=== PATIENT | male | born 1960 | race Caucasian/White ===

== ENCOUNTER 2017-01-11 11:38 | Emergency (ER) | payer SELFPAY ==
[~2017-01-11] VITALS: Ht 180.3 cm; Wt 90.0 kg
[2017-01-11 11:40] VITALS: BP 143/88; PULSE 103; RESP 15; TEMP 98.5; O2SAT 98
--- NOTE | 2017-01-11 11:45 | PD ---
Physical Exam Time Seen by Provider: 11:44 Narrative 56 Y/O male here with R groin pain, burning sensation, "bulging," nausea. Symptoms ongoing for 8 months, worsening over past month which prompted evaluation. Vital signs reviewed. Seen at triage desk. Awaiting bed placement. Data Data Last Documented VS Vital Signs Date Time Temp Pulse Resp B/P Pulse Ox O2 Delivery O2 Flow Rate FiO2 01/11/17 11:40 98.5 103 15 143/88 98 MDM Medical Record Reviewed: Yes Supervised Visit with LEMUEL: Dinh Hernandez Jan 11, 2017 11:45
[2017-01-11 12:17] VITALS: BP 131/72
--- NOTE | 2017-01-11 12:24 | PD ---
HPI Chief Complaint: Lump, Cyst, Hernia Time Seen by Provider: 12:13 Travel History International Travel<30 days: No Contact w/Intl Traveler<30days: No Traveled to known affect area: No History of Present Illness HPI Patient comes in complaining of right inguinal hernia ongoing for years has been getting worse over the past 6 weeks. Patient reports a bring sensation in the area. Patient states he pushes it back in but then it comes right back out. Pain is worse with walking. Patient denies any loss or change in bowel or bladder, chest pain, shortness of breath, nausea, vomiting, abdominal pain, or fevers. Patient states that he drank 2 beers this morning secondary to the pain. Patient this is what he has been doing for the pain control. Patient denies being evaluated for this previously. [facility] [place] Past Medical History Medical History: Denies Significant Hx Tetanus Vaccination: < 5 Years Past Surgical History Surgical History: No Previous Surgery Social History Alcohol Use: Yes Tobacco Use: No Substance Use: No Allergies-Medications (Allergen,Severity, Reaction): Coded Allergies: No Known Allergies (Verified , 01/11/17) Uncoded Allergies: NKA (Allergy, Unknown, 04/20/03) Reported Meds & Prescriptions Reported Meds & Active Scripts Active No Active Prescriptions or Reported Medications Review of Systems Except as stated in HPI: all other systems reviewed are Neg Physical Exam Narrative GENERAL: Well-developed, overly nourished, in no acute distress, and non-ill appearing. SKIN: Focused skin assessment warm and dry. HEAD: Atraumatic. Normocephalic. EYES: Pupils equal and round. EOMI. No scleral icterus. No injection or drainage. ENT: No nasal bleeding or discharge. Mucous membranes pink and moist. NECK: Trachea midline. Supple. No nuclear rigidity. RESPIRATORY: No accessory muscle use. No respiratory distress. Clear to auscultation. Breath sounds equal bilaterally. GASTROINTESTINAL: Abdomen soft, non-tender, nondistended, and without guarding. Hepatic and splenic margins not palpable. Normal bowel sounds 4. No pulsatile mass. Easily reducible right inguinal hernia. There is no signs of incarcerated hernia, strangulated hernia, or signs of surgical abdomen at this time. MUSCULOSKELETAL: No obvious deformities. No clubbing. No cyanosis. No edema. Full range of motion. NEUROLOGICAL: Awake and alert. No obvious cranial nerve deficits. Motor grossly within normal limits. Normal speech. PSYCHIATRIC: Appropriate mood and affect; insight and judgment normal. Data Data Last Documented VS Vital Signs Date Time Temp Pulse Resp B/P Pulse Ox O2 Delivery O2 Flow Rate FiO2 01/11/17 12:17 101 20 131/72 98 01/11/17 11:40 98.5 Orders Mandatory Outpatient Referral (01/11/17 12:30) MDM Medical Decision Making Medical Screen Exam Complete: Yes Emergency Medical Condition: Yes Differential Diagnosis Incarcerated hernia, reducible hernia, hydrocele, other Narrative Course Patient in no obvious distress upon re-evaluation. There was no clinical evidence to support appendicitis, cholecystitis/cholelithiasis, pancreatitis, perforation of gastric ulcer, colitis, diverticulitis, bacterial peritonitis, obstruction, volvulus, hernial incarceration or strangulation at this time. There was no evidence to support vascular pathology such as AAA, mesenteric ischemia. Discussed patient with Dr. Wilkinson prior to discharge, who is in agreement with plan of care and disposition. Any questions/concerns in reference to patient diagnosis/condition discussed and clarified prior to patient's discharge. Reinforced sheer importance of close follow up with patient 's primary physician or primary care clinic and/or general surgeon for possible surgical intervention. Instructed patient to return to ED immediately, if symptoms return/worsen. The patient is to return if worsens, pain worsens or changes, develop fever, inability to tolerate fluids with or without vomiting, or if hernia becomes unreducible. Pt showed understanding of above instructions. Further instructions and recommendations were detailed in discharge paperwork. Pt ambulated without difficulty out of ED at discharge. Diagnosis Primary Impression: Right inguinal hernia Patient Instructions: General Instructions, Inguinal Hernia (ED) Additional Instructions: Follow-up with general surgery for possible surgical intervention. Use over-the -counter Tylenol and/or ibuprofen as needed for pain. Follow instructions on the packaging. Obtain a pair spanks for hernia support. Return to the emergency department if symptoms get worse, inability to reduce hernia, or for other concerns. Scripts No Active Prescriptions or Reported Meds Disposition: 01 DISCHARGE HOME Condition: Stable Vijay Mcconnell Jan 11, 2017 12:24
== END 2017-01-11 12:40 | disposition home or self-care (01) ==
LOC: NEPD 11:38
DX: K40.90 Unilateral inguinal hernia, without obstruction or gangrene, not specified as recurrent (principal)
CPT/HCPCS: 99282